=== PATIENT | male | born 1990 | race Caucasian/White ===

== ENCOUNTER 2017-05-30 08:52 | Emergency (ER) | payer MEDICARE, OTHER ==
[~2017-05-30] VITALS: Wt 77.1 kg
[2017-05-30] MEDS ORDERED: IPRATROPIUM (NEB) 0.5 MG/2.5 ML AMP NEB STA (09:20)
[2017-05-30] MEDS ORDERED: ALBUTEROL 0.083% (NEB) 2.5 MG/3 ML AMP NEB STA (09:20)
[2017-05-30] MEDS ORDERED: predniSONE 20 MG TAB PO ONE (09:30)
--- NOTE | 2017-05-30 09:36 | ERD ---
ER Documentation Chief Complaint Chief Complaint COUGH, CONGESTION, ONSET 1 WEEK HPI 26-year-old male states he is currently homeless, there is healthy comes in with cough, congestion, wheezing for almost a week now. Patient states that he is currently staying at a [facility], where other people have been noted to be coughing and "sick". He reports wheezing throughout the day, and he usually wakes up with a dry cough, has had a sore throat with nasal congestion as well. Patient denies any fevers or chills. Patient denies hemoptysis. ROS All systems reviewed and are negative except as per history of present illness. Medications Home Meds Active Scripts Dextromethorphan Hb-Promethazine Hcl* (Promethazine DM* Syrup) 473 Ml Syrup, 5 ML PO Q6 Y for COUGH, #4 OZ Prov:SATHYA CARTER PA-C 05/30/17 Azithromycin* (Zithromax*) 250 Mg Tablet, 250 MG PO .ZPACK DIRECTED, #6 TAB TAKE 500 MG (2 TABS) THE FIRST DAY THEN 250 MG (1 TAB) DAYS 2-5 Prov:SATHYA CARTER PA-C 05/30/17 Albuterol Sulfate* (Ventolin HFA*) 18 Gm Hfa.aer.ad, 2 PUFF INHALATION Q4H, #1 INHALER Prov:SATHYA CARTER PA-C 05/30/17 Prednisone* (Prednisone*) 20 Mg Tab, 40 MG PO DAILY for 4 Days, TAB Prov:SATHYA CARTER PA-C 05/30/17 Allergies Allergies: Coded Allergies: No Known Allergy (Unverified , 05/30/17) PMhx/Soc Medical and Surgical Hx: pt denies Medical Hx, pt denies Surgical Hx Hx Alcohol Use: No Hx Substance Use: No Smoking Status: Never smoker Physical Exam Vitals Vital Signs Date Time Temp Pulse Resp B/P Pulse Ox O2 Delivery O2 Flow Rate FiO2 05/30/17 10:19 99 18 97 21 05/30/17 08:56 97.7 99 18 142/96 97 Physical Exam General: Well-developed, well-nourished. The patient appears in no acute distress. HEENT: Head is normocephalic, atraumatic. No scleral icterus. Pupils are equal , round, and reactive. Oral mucous membranes are moist. No pharyngeal erythema. Neck: Supple. Nontender. Lungs: Patient has diffuse wheezing bilaterally, no rales, no rhonchi, nonlabored. Heart: Regular rate and rhythm. S1 and S2 are normal. No murmurs, gallops, or rubs. Abdomen: Soft, nontender, nondistended. Bowel sounds are normoactive. Extremities: No clubbing or cyanosis. Normal pulses. Moving extremities x 4. No weakness. Neurologic: Alert and oriented 3. No focal deficits. Skin: Normal turgor. No rash or lesions. Results 24 hrs Current Medications Medications (Trade) Dose Ordered Sig/Tracy Route PRN Reason Start Time Stop Time Status Last Admin Dose Admin Albuterol (Proventil 0.083% (Neb)) 5 mg ONCE STAT NEB 05/30/17 09:20 05/30/17 09:22 DC 05/30/17 10:01 Ipratropium [place] (Atrovent 0.02% (Neb)) 0.5 mg ONCE STAT NEB 05/30/17 09:20 05/30/17 09:22 DC 05/30/17 10:01 Prednisone (Prednisone) 40 mg ONCE ONCE PO 05/30/17 09:30 05/30/17 09:31 DC 05/30/17 09:30 Procedures/MDM ED COURSE: He was given prednisone 40 mg p.o. Patient was also given an albuterol breathing treatment 5 mg, Atrovent 0.5 mg. Re-auscultation shows clear breath sounds, patient reports he is feeling better at this time, vitals are normal. MEDICAL DECISION MAKING: The patient is a 26-year-old male who comes in with an acute upper respiratory infection is acute bronchitis. The patient is young heartbeat has developed wheezing and is currently living at home a fdc would cover her bronchitis. The patient has a differential diagnosis of a viral upper respiratory infection , bacterial upper respiratory infection, bronchitis, pneumonia, pharyngitis, laryngitis, epiglottitis, croup, pneumonia. Patient has a normal pulmonary examination, clear breath sounds, normal pulse oximetry, with no corrective measures needed at this time. Fluids, rest, antipyretics were encouraged. Departure Diagnosis: Primary Impression: Cough Condition: Good SATHYA CARTER PA-C May 30, 2017 09:36
--- NOTE | 2017-05-30 10:43 | RADRPT ---
PROCEDURE: XR Chest. CLINICAL INDICATION: Cough TECHNIQUE: Single portable view of the chest was obtained. COMPARISON: None. FINDINGS: Cardiac/vascular structures: Normal cardiomediastinal silhouette. Pulmonary: Lungs are clear. No pleural effusion. No evidence of pneumothorax. Osseous structures: Normal Soft tissues: Normal IMPRESSION: No acute cardiopulmonary disease. RPTAT:AAJJ Physician Kassi Date Time Electronically viewed and signed by Joel Worrell Physician on 05/30/2017 10:43 /
[2017-05-30] MEDS ORDERED: PRED20TA PO (10:58)
[2017-05-30] MEDS ORDERED: AZIT250T94 PO (10:58)
[2017-05-30] MEDS ORDERED: D-ME473S2 PO (10:58)
[2017-05-30] MEDS ORDERED: ALBU18HF INHALATION (10:58)
== END 2017-05-30 11:08 | disposition home or self-care (01) ==
LOC: FTE 08:52
DX: R05 Cough (principal)
CPT/HCPCS: 71010; 94664; 99284; J7512